=== PATIENT | female | born 1950 | race Caucasian/White ===

== ENCOUNTER → 2023-12-20 12:27 | Outpatient (REF) | payer MEDICARE, OTHER, SELFPAY ==
[2023-12-20 13:16] LABS: % Basophils 0.8 % (0-2); % Eosinophils 1.4 % (0-6); % Immature Granulocytes 0.2 % (0-0.5); % Lymphocytes 43.8 % (20.5-51.1); % Monocytes 9.8 % (1.7-9.3); Absolute Eosinophils 0.1 10^3/uL (0-0.7); Absolute Lymphocytes 2.2 10^3/uL (1.2-3.4); Absolute Monocytes 0.5 10^3/uL (0.1-0.6); Absolute Neutrophils 2.2 10^3/uL (1.4-6.5); Hemoglobin 13.1 g/dL (12.0-16.0); Mean Corp Hgb Conc. 32.8 g/dL (33.0-37.0); Mean Corpuscular Hgb 33.2 pg (27.0-31.0); Mean Corpuscular Volume 101.5 fL (81.0-99.0); Mean Platelet Volume 10.4 fL (7.4-10.4); Nucleated Red Blood Cells % 0 %; Platelet Count 215 10^3/uL (130-400); Red Blood Cell Count 3.94 10^6/uL (4.20-5.40); Red Cell Dist. Width 12.9 % (11.5-14.5)
[2023-12-20 13:44] LABS: Uric Acid 5.1 mg/dl (2.5-6.2)
[2023-12-20 14:07] LABS: Erythrocyte Sed Rate 17 mm/hour (0-20)
== END ==
LOC: REG 12:27
PROVIDERS: ATTENDING PHYSICIAN Family Medicine
DX: M79.675 Pain in left toe(s) (principal)
CPT/HCPCS: 36415; 73660; 84550; 85025; 85652

== ENCOUNTER 2024-03-31 09:48 | Emergency (ER) | payer MEDICARE, OTHER, SELFPAY ==
[2024-03-31 09:53] VITALS: BP 144/74
[2024-03-31 10:00] VITALS: BP 128/70
--- NOTE | 2024-03-31 10:03 | ED.GENMED ---
History of Present Illness
General
Chief Complaint: Eye Problems
Time Seen by Provider: 03/31/24 10:03
History of Present Illness
History of Present Illness:
HPI: Approximately 45 minutes prior to arrival, the patient was walking and had abrupt onset of inability to read the letters on the trash cans on her walk. Overall currently, she feels improved however, she has some weakness and dizziness.
EXAM:
GENERAL: Well appearing in no distress
HEENT: Moist oral mucosa, visual acuity 20/25 to the left and 20/50 to the right, 20/25 to both, there are no field cuts on exam
CARDIOVASCULAR: No murmurs, normal heart rate, regular rhythm, No chest wall tenderness
PULMONARY: No respiratory distress, breath sounds are clear and equal
ABDOMEN: Soft with no peritoneal signs, no tenderness
NEUROLOGIC: Excellent strength all extremities, no coordination deficits, no communication deficit
PSYCHIATRIC: Appropriate mental status, normal insight and judgement
EXTREMITIES: Nontender, no edema, moves all extremities equally
SKIN: No rash, no lesions
TIME OF INITIAL ENCOUNTER: 10:05 AM
NUMBER AND COMPLEXITY OF PROBLEMS ADDRESSED AT THE ENCOUNTER
� Chronic conditions affecting care: Seizures
� Acute Exacerbation and/or Progression of Chronic Illness: This is an acute problem
� Differential Diagnosis includes: TIA, CVA, hypoglycemia
AMOUNT AND/OR COMPLEXITY OF DATA TO BE REVIEWED AND ANALYZED
� I performed an independent evaluation of and my interpretation is:
EKG: Sinus 55, normal axis, no acute ST abnormality
CT: CT head shows no acute abnormality however some nonspecific white matter hypodensities are noted
X-rays:
Laboratory Studies: White count slightly low at 3.5 but otherwise CBC unremarkable
Other:
� Review of other/old records: The patient was admitted with right lower lobe pneumonia July 2023
� Clinical information was obtained by an independent historian: I spoke to at bedside
� Prescriptions/Medications Considered but not given:
� Further testing considered but not performed:
RISK OF COMPLICATIONS AND/OR MORBIDITY OR MORTALITY OF PATIENT MANAGEMENT
� Social determinants of health affecting care: Lives at home
� Discussion with other providers: Notified Dr. Escobedo of patient's presentation�she ultimately recommended CTA as well which was unremarkable
� Escalation of care including admission/observation vs risk of discharge considered: The patient's workup has been unremarkable in the ED including normal CTA. Her symptoms have entirely resolved prior to arrival. They have
not recurred while in the ED.
Past History
Past History
ED Past Medical History: Other (Monoclonal gammopathy) and Other (Osteoporosis)
Social History
Tobacco: Non-smoker
Alcohol: Occasional
Living: with family
Family History
Family History: Negative Diabetes, Hypertension, Early CAD, Asthma or Cancer
Phy Exam
Physical Exam
Physical Exam:
See HPI
Course
Orders/Labs/Results
Orders:
Orders
03/31/24 10:08
CT Head W/o Iv Contrast Urgent
Comment:
Reason For Exam: resolved vision change; dizzy
03/31/24 10:09
Electrocardiogram (*1) Urgent
Reason for Study: Vertigo / Dizzy
EKG- Treatment ONCE
03/31/24 10:52
Basic Metabolic Panel Urgent
03/31/24 10:53
CRP [C-Reactive Protein] Urgent
Complete Blood Count/With Diff Urgent
ESR [Erythrocyte Sed Rate] Urgent
Hemoglobin A1c [Glycohemoglobin (HgbA1c)] Urgent
TSH Reflex To Free T4 Urgent
03/31/24 12:27
CT Head & Neck Angio W/wo IV Urgent
Comment:
Reason For Exam: resolved vision change
Abnormal Lab Results
03/31/24
10:53
WBC 3.5 L 10^3/uL
(4.8-10.8)
RBC 4.06 L 10^6/uL
(4.20-5.40)
MCH 33.3 H pg
(27.0-31.0)
Neutrophils % 39.0 L %
(42.2-75.2)
Monocytes % 11.6 H %
(1.7-9.3)
03/31/24 10:53
03/31/24 10:52
Vital Signs
Initial and Last Documented VS:
Initial Vital Signs
Temp Pulse Resp BP Pulse Ox
98.4 F 84 18 144/74 99
03/31/24 09:53 03/31/24 09:53 03/31/24 09:53 03/31/24 09:53 03/31/24 09:53
Last Documented Vital Signs
Temp Pulse Resp BP Pulse Ox
98.4 F 55 12 115/75 97
03/31/24 09:53 03/31/24 13:21 03/31/24 13:21 03/31/24 13:20 03/31/24 13:21
*Critical Care Note
Total Time (30-74mins, 75-104mins- exclusive of procedures): Not Applicable
ED Attending Note
-
Portions of this chart may have been created with voice recognition software.� Occasional wrong word or��sound alike� substitutions may have occurred due to the inherent limitations of voice recognition software.
Discharge Plan
Departure
Prescriptions:
No Action
Probiotic
1 tab PO DAILY
guaifenesin 600 mg Tablet Extended Release 12hr
1,200 mg PO Q12 Qty: 0 0RF
acetaminophen 325 mg Tablet
650 mg PO Q4HPRN PRN (Reason: if temp > 101 F) Qty: 0 0RF
benzonatate 100 mg Capsule
200 mg PO TIDPRN PRN (Reason: cough) Qty: 60 0RF
Referrals:
Gagan Lee MD [Family Provider] -
Interventions
Interventions:
*Risk Screen - Suicide Last Done: 03/31/24 09:49
*General Assessment Last Done: 03/31/24 09:49
*Neglect/Abuse Screening Last Done: 03/31/24 09:49
ED- Fall Risk Assessment Last Done: 03/31/24 10:36
*ED COVID-19 Vaccine History Last Done: 03/31/24 09:49
Discharge Date and Time
Print Language: EQUATORIAL GUINEAN
[2024-03-31 10:36] VITALS: BMI 20.9
[2024-03-31 11:00] VITALS: BP 104/67
[2024-03-31 11:04] LABS: % Basophils 1.1 % (0-2); % Eosinophils 2.8 % (0-6); % Immature Granulocytes 0.3 % (0-0.5); % Lymphocytes 45.2 % (20.5-51.1); % Monocytes 11.6 % (1.7-9.3); Absolute Eosinophils 0.1 10^3/uL (0-0.7); Absolute Lymphocytes 1.6 10^3/uL (1.2-3.4); Absolute Monocytes 0.4 10^3/uL (0.1-0.6); Absolute Neutrophils 1.4 10^3/uL (1.4-6.5); Hemoglobin 13.5 g/dL (12.0-16.0); Mean Corp Hgb Conc. 34.6 g/dL (33.0-37.0); Mean Corpuscular Hgb 33.3 pg (27.0-31.0); Mean Corpuscular Volume 96.1 fL (81.0-99.0); Mean Platelet Volume 10.4 fL (7.4-10.4); Nucleated Red Blood Cells % 0 %; Platelet Count 205 10^3/uL (130-400); Red Blood Cell Count 4.06 10^6/uL (4.20-5.40); Red Cell Dist. Width 12.3 % (11.5-14.5); White Blood Cell Count 3.5 10^3/uL (4.8-10.8)
[2024-03-31 11:09] LABS: Erythrocyte Sed Rate 14 mm/hour (0-20)
[2024-03-31 11:16] LABS: Blood Urea Nitrogen 16 mg/dl (7-17); Calcium 9.6 mg/dl (8.4-10.2); Carbon Dioxide 30 mmol/L (22-30); Chloride 103 mmol/L (98-107); Estimated Creatinine Clearance 49 ml/min; Glucose 94 mg/dl (70-99); Potassium 4.4 mmol/L (3.5-5.1); Sodium 141 mmol/L (135-145); eGFR > 60.00
[2024-03-31 11:21] LABS: C-Reactive Protein < 5.00 mg/L (0.0-10.00)
[2024-03-31 11:46] LABS: TSH Reflex To Free T4 2.02 uIU/ml (0.47-4.68)
[2024-03-31 12:00] VITALS: BP 99/64
[2024-03-31 12:23] LABS: Glycohemoglobin (HgbA1c) 5.5 % (4.0-5.6)
[2024-03-31 13:20] VITALS: BP 115/75
[2024-03-31 14:00] VITALS: BP 105/68
== END 2024-03-31 14:38 | disposition home or self-care (01) ==
LOC: EMR 09:48
PROVIDERS: EMERGENCY PHYSICIAN Emergency Medicine; FAMILY PHYSICIAN Family Medicine
DX: H53.8 Other visual disturbances (principal)
CPT/HCPCS: 99285; 70450; 70496; 70498; 80048; 83036; 84443; 85025; 85652; 86140; 93005; Q9967

== ENCOUNTER → 2024-04-06 08:23 | Outpatient (REF) | payer MEDICARE, OTHER, SELFPAY ==
[2024-04-06 09:46] LABS: % Basophils 1.2 % (0-2); % Eosinophils 3.5 % (0-6); % Immature Granulocytes 0.2 % (0-0.5); % Lymphocytes 42.2 % (20.5-51.1); % Monocytes 8.3 % (1.7-9.3); % Neutrophils 44.6 % (42.2-75.2); Absolute Basophils 0.1 10^3/uL (0-0.2); Absolute Eosinophils 0.2 10^3/uL (0-0.7); Absolute Lymphocytes 1.8 10^3/uL (1.2-3.4); Absolute Monocytes 0.4 10^3/uL (0.1-0.6); Absolute Neutrophils 1.9 10^3/uL (1.4-6.5); Hematocrit 40.7 % (37.0-47.0); Hemoglobin 13.8 g/dL (12.0-16.0); Mean Corp Hgb Conc. 33.9 g/dL (33.0-37.0); Mean Corpuscular Hgb 33.9 pg (27.0-31.0); Mean Platelet Volume 10.3 fL (7.4-10.4); Nucleated Red Blood Cells % 0 %; Platelet Count 196 10^3/uL (130-400); Red Blood Cell Count 4.07 10^6/uL (4.20-5.40); Red Cell Dist. Width 12.3 % (11.5-14.5); White Blood Cell Count 4.3 10^3/uL (4.8-10.8)
[2024-04-06 11:04] LABS: Erythrocyte Sed Rate 13 mm/hour (0-20)
[2024-04-06 11:35] LABS: ALT (SGPT) 15 U/L (0-35); AST (SGOT) 31 U/L (14-36); Albumin 4.1 g/dl (3.5-5.0); Alkaline Phosphatase 56 U/L (38-126); Blood Urea Nitrogen 18 mg/dl (7-17); Calcium 9.3 mg/dl (8.4-10.2); Carbon Dioxide 27 mmol/L (22-30); Chloride 101 mmol/L (98-107); Glucose 87 mg/dl (70-99); Potassium 4.5 mmol/L (3.5-5.1); Sodium 141 mmol/L (135-145); Total Bilirubin 0.7 mg/dl (0.2-1.3); eGFR > 60.00
[2024-04-06 11:39] LABS: C-Reactive Protein < 5.00 mg/L (0.0-10.00)
[2024-04-06 11:48] LABS: IgA 222 mg/dl (70-400)
[2024-04-06 12:10] LABS: TSH Reflex To Free T4 3.48 uIU/ml (0.47-4.68)
[2024-04-08 01:45] LABS: Endomysial IgA Antibody Titer <1:10 (<1:10)
== END ==
LOC: REG 08:23
PROVIDERS: ATTENDING PHYSICIAN Physician Assistant; FAMILY PHYSICIAN Family Medicine
DX: R19.4 Change in bowel habit (principal)
CPT/HCPCS: 36415; 80053; 82784; 83516; 84443; 85025; 85652; 86140; 86231

== ENCOUNTER → 2024-04-20 06:18 | Day surgery (SDC) | payer MEDICARE, OTHER, SELFPAY | LOC: GI 06:18 | PROVIDERS: ATTENDING PHYSICIAN Internal Medicine | DX: K52.9 Noninfective gastroenteritis and colitis, unspecified (principal); K63.89 Other specified diseases of intestine; K64.8 Other hemorrhoids; R19.4 Change in bowel habit | CPT/HCPCS: 45380; 88305 ==

== ENCOUNTER → 2024-05-10 09:31 | Outpatient (REF) | payer MEDICARE, OTHER, SELFPAY ==
[2024-05-13 01:57] LABS: Fat, Fecal - Neutral Normal (Normal); Fat, Fecal - Split Normal (Normal)
== END ==
LOC: REG 09:31
PROVIDERS: ATTENDING PHYSICIAN Physician Assistant; FAMILY PHYSICIAN Internal Medicine
DX: R19.7 Diarrhea, unspecified (principal)
CPT/HCPCS: 82653; 82705; 83993; 87045; 87046; 87324; 87328; 87329; 87427; 87449

== ENCOUNTER → 2024-06-14 09:46 | Outpatient (REF) | payer MEDICARE, OTHER, SELFPAY | LOC: HWRAD 09:46 | PROVIDERS: ATTENDING PHYSICIAN Student in an Organized Health Care Education/Training Program | DX: R05.9 Cough, unspecified (principal) | CPT/HCPCS: 71046 ==